=== PATIENT | female | born 1975 | race Caucasian/White ===

== ENCOUNTER → 2017-01-23 | Outpatient (CLI) | payer BC ==
--- NOTE | 2017-01-24 07:15 | MM ---
Reason for exam: screening (asymptomatic). Baseline mammogram. History: Family history of breast cancer in maternal grandmother at age 40. Physical Findings: Nurse did not find any significant physical abnormalities on exam. MG Screening Mammo w CAD Bilateral CC and MLO view(s) were taken. The breast tissue is heterogeneously dense. This may lower the sensitivity of mammography. There is no discrete abnormality. These results were verbally communicated with the patient and result sheet given to the patient on 01/23/17. ASSESSMENT: Negative, BI-RAD 1 RECOMMENDATION: Routine screening mammogram of both breasts in 1 year.
--- NOTE | 2017-01-24 16:55 | US ---
EXAMINATION TYPE: US transvaginal DATE OF EXAM: 01/23/2017 3:41 PM COMPARISON: NONE CLINICAL HISTORY: Irregular N92.6 Menses,. dub, general pelvic pain TECHNIQUE: Transvaginal (TV) EXAM MEASUREMENTS: Uterus: 7.4 x 4.3 x 5.2 cm Endometrial Stripe: 0.7 cm Right Ovary: 2.7 x 1.6 x 3.0 cm Left Ovary: 2.7 x 2.0 x 2.2 cm Order for TA pelvis, unable to visualize retroverted uterus or ovaries TA; TV done instead 1. Uterus: Retroverted wnl 2. Endometrium: somewhat heterogeneous, not thickened 3. Right Ovary: wnl 4. Left Ovary: seen with a 2.2cm complex cystic mass, shows no vascularity ?resolving hemorrhagic cy st v other; rec short term follow up 5. Bilateral Adnexa: wnl 6. Posterior cul-de-sac: small amount of free fluid IMPRESSION: 2.2 CM COMPLEX CYSTIC MASS INVOLVING THE LEFT OVARY.
== END | disposition home or self-care (01) ==
LOC: RADUSWWP 14:55
PROVIDERS: ATTEND Obstetrics & Gynecology
DX: Z12.31 Encounter for screening mammogram for malignant neoplasm of breast (principal); N83.292 Other ovarian cyst, left side; N92.4 Excessive bleeding in the premenopausal period; Z80.3 Family history of malignant neoplasm of breast
CPT/HCPCS: 76830; G0202

== ENCOUNTER → 2017-03-06 | Outpatient (CLI) | payer BC ==
[2017-03-06 08:23] LABS: Basophils # (A) 0.1 k/uL (0-0.2); Basophils % (A) 1 %; CHCM 33.9; Eosinophils # (A) 0.1 k/uL (0-0.7); Eosinophils % (A) 2 %; HCT 43.3 % (34.0-46.0); HDW 2.42; HGB 14.3 gm/dL (11.4-16.0); Luc # (Auto) 0.15; Luc % (Auto) 3; Lymphocytes # (A) 1.7 k/uL (1.0-4.8); Lymphocytes % (A) 29 %; MCH 31.2 pg (25.0-35.0); MCHC 32.9 g/dL (31.0-37.0); MCV 94.8 fL (80.0-100.0); Mean Platelet Volume 6.7; Monocytes # (A) 0.3 k/uL (0-1.0); Monocytes % (A) 6 %; Neutrophils # (A) 3.5 k/uL (1.3-7.7); Neutrophils % (A) 60 %; RBC 4.57 m/uL (3.80-5.40); RDW 12.6 % (11.5-15.5); WBC 5.9 k/uL (3.8-10.6); WBC (Perox) 6.01
== END | disposition home or self-care (01) ==
LOC: LABPAT 07:46
PROVIDERS: ATTEND Obstetrics & Gynecology
DX: Z01.818 Encounter for other preprocedural examination (principal)
CPT/HCPCS: 85025

== ENCOUNTER 2017-03-10 06:09 | Day surgery (SDC) | payer BC ==
[2017-03-09 08:29] VITALS: BMI 29.1
--- NOTE | 2017-03-09 19:56 | P.HPOB ---
History of Present Illness H&P Date: 03/09/17 Chief Complaint: NOVA 2, Dysmenorrhea, Menorrhagia This is a 41 y.o. female, 2, para 2, who presents for loop electrocautery excision procedure with colposcopy and dilatation and curettage with hysteroscopy and Novasure endometrial ablation for NOVA-2 and menorrhagia with dysmenorrhea. She had a recent colposcopy due to ASCUS cannot rule out HGSIL with positive high risk HPV. Results showed NOVA 1 and 2. She also complains of menses occuring every 21 days and lasting 4-5 days, but very heavy with significant cramping. She occasionally has a period come earlier. Pelvic ultrasound showed uterus measuring 7.4 x 4.3 x 5.2 cm and lining thickness of 7 mm. She did have a complex cyst measuring 2.2 cm on the left ovary. She would like definitive surgical treatment to control her heavy, painful menses. Her fiance has had a vasectomy. OB Hx: . History of 2 vaginal deliveries. 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 Social history: Engaged. Works for [employer]. Review of Systems Constitutional: Reports fatigue Respiratory: Denies cough Gastrointestinal: Reports heartburn, Denies abdominal pain, Denies diarrhea, Denies nausea, Denies vomiting Genitourinary: Reports dysmenorrhea, Reports pelvic pain Menstruation: Reports menses variable, Reports period heavy Musculoskeletal: Reports low back pain, Reports neck pain Integumentary: Denies pruritus, Denies rash Neurological: Reports headaches Psychiatric: Reports anxiety, Reports change in libido Endocrine: Reports flushing Past Medical History Past Medical History: Asthma, GERD/Reflux Additional Past Medical History / Comment(s): FREQUENT PAINFUL PERIODS; Degenerative disc disease History of Any Multi-Drug Resistant Organisms: None Reported Past Surgical History: Back Surgery, Orthopedic Surgery Additional Past Surgical History / Comment(s): left and right foot surgery, L5- S1 laminectomy 2005, Past Anesthesia/Blood Transfusion Reactions: Postoperative Nausea & Vomiting ( PONV) Past Psychological History: Anxiety Smoking Status: Former smoker Past Alcohol Use History: Occasional Additional Past Alcohol Use History / Comment(s): QUIT SMOKING 12/2016, SMOKED FROM AGE 12, 1 TO 1 AND 1/2 PPD Past Drug Use History: None Reported - Past Family History Mother Family Medical History: No Reported History Medications and Allergies Home Medications Medication Instructions Recorded Confirmed Type Budesonide/Formoterol Fumarate 1 puff PO BID 11/17/14 03/09/17 History [Symbicort 80-4.5 Mcg Inhaler] Naltrexone HCl/Bupropion HCl 2 tab PO BID 03/09/17 03/09/17 History [Contrave ER 8-90 mg Tablet] Xanax . 1 tab PO DAILY PRN 03/09/17 History Allergies Allergy/AdvReac Type Severity Reaction Status Date / Time ciprofloxacin [From Cipro] Allergy Unknown Verified 03/09/17 08:24 Latex, Natural Rubber Allergy Rash/Hives Verified 12/05/14 18:16 Exam Osteopathic Statement: *. No significant issues noted on an osteopathic structural exam other than those noted in the History and Physical/Consult. - Vital Signs Vital signs: Intake and Output 03/08/17 03/09/17 03/09/17 22:59 06:59 14:59 Other: Weight 79.379 kg Patient Weight 03/10/17 06:59 Weight 79.379 kg HEENT: within normal limits Heart: regular rate and rhythm Lungs: clear to auscultation bilaterally Abdomen: soft, non-tender Pelvic exam: uterus anteverted, non-tender with no adnexal masses or tenderness Extremities: neg. Saji's Assessment and Plan (1) NOVA II (cervical intraepithelial neoplasia II) Status: Acute (2) Menorrhagia with regular cycle Status: Acute (3) Dysmenorrhea Status: Acute Plan: Plan is to proceed with Loop electrocautery excision proceture/Colposcopy with dilatation and curettage with hysteroscopy and Novasure endometrial ablation. I have discussed the risks, benefits, and alternative therapies for the above- mentioned procedure and for both sedation/anesthesia as well as necessary blood products administration, if indicated, as they pertain to this patient. The patient has indicated her understanding and acceptance of the risks and procedures discussed.
[~2017-03-10 06:09] MED LIST: DEXAMETHASONE SOD PHOSPHATE 10 MG/ML 1 ML VIAL IV ONE; HYDROmorphone 1 MG/ML 1 ML SYRINGE IVP PRN; LACTATED RINGERS 1,000 ML IV SCH; MIDAZOLAM 2 MG/2 ML VIAL IV PRN; ONDANSETRON 4 MG/2 ML VIAL IVP ONE; Pre Op ABX Message 1 EACH MISC MISCELLANE ONE; SCOPOLAMINE 1.5MG/72HR PATCH TRANSDERM ONE
[2017-03-10 06:44] VITALS: RESP 16
[2017-03-10] MEDS ORDERED: LIDOCAINE 1% 20 ML VIAL (10MG/ML) FOR IV START INTRADERMA ONE (06:44)
[2017-03-10] MEDS ORDERED: KETOROLAC 30 MG/ML 1 ML VIAL ONE (07:26)
[2017-03-10] MEDS ORDERED: MIDAZOLAM 2 MG/2 ML VIAL ONE (07:26)
[2017-03-10] MEDS ORDERED: LIDOCAINE 1% INJ 10MG/ML (20 ML MDV) ONE (07:26)
[2017-03-10] MEDS ORDERED: PROPOFOL 10 MG/ML 20 ML VIAL IV ONE (07:26)
[2017-03-10] MEDS ORDERED: SUCCINYLCHOLINE CHLORIDE VIAL 200 MG/10 ML VIAL IV ONE (07:26)
[2017-03-10] MEDS ORDERED: fentaNYL (PF) 50 MCG/ML 2 ML AMP ONE (07:26)
[2017-03-10] MEDS ORDERED: FERRIC SUBSULFATE (MONSELS) JAR TOPICAL ONE (07:46)
[2017-03-10] MEDS ORDERED: LIDOCAINE 1%-EPI 1:100,000 20 ML VIAL SQ ONE (07:47)
[2017-03-10] MEDS ORDERED: ACETIC ACID 15 DROPS/ML DROPS MISCELLANE ONE (07:48)
[2017-03-10] MEDS ORDERED: BUPIVACAINE (PF) 0.5% 30 ML VIAL SQ ONE (07:48)
[2017-03-10] MEDS ORDERED: IODINE/POTASS IOD (LUGOLS) BTL TOPICAL ONE (07:48)
--- NOTE | 2017-03-10 08:08 | P.OP ---
Date of Procedure: 03/10/17 Preoperative Diagnosis: 1. NOVA 2. 2. Menorrhagia. 3. Dysmenorrhea. Postoperative Diagnosis: Same Procedure(s) Performed: 1. Colposcopy with loop electrocautery excision procedure. 2. Dilation and curettage with hysteroscopy and NovaSure endometrial ablation. Anesthesia: GETA Surgeon: Liat Lancaster Estimated Blood Loss (ml): 5 Pathology: other (Ectocervix with stitch on 12 o'clock position, separate piece is 3:00; endometrial curettings) Condition: stable Disposition: same day Indications for Procedure: This is a 41 y.o. female, 2, para 2, who presents for loop electrocautery excision procedure with colposcopy and dilatation and curettage with hysteroscopy and Novasure endometrial ablation for NOVA-2 and menorrhagia with dysmenorrhea. She had a recent colposcopy due to ASCUS cannot rule out HGSIL with positive high risk HPV. Results showed NOVA 1 and 2. She also complains of menses occuring every 21 days and lasting 4-5 days, but very heavy with significant cramping. She occasionally has a period come earlier. Pelvic ultrasound showed uterus measuring 7.4 x 4.3 x 5.2 cm and lining thickness of 7 mm. She did have a complex cyst measuring 2.2 cm on the left ovary. She would like definitive surgical treatment to control her heavy, painful menses. Her fiance has had a vasectomy. Operative Findings: Upon colposcopy, acetowhite area was noted at 4 o'clock position. Lugol white area was also noted in the same area and along the 3:00 border. No mosaicism was noted. Upon hysteroscopy, a dyssynchronous endometrial pattern was noted with a questionable small polyp noted. A moderate amount of endometrial curettings were obtained. Description of Procedure: The patient was taken the operating room where she is placed in the dorsal lithotomy position. She is prepped and draped in the normal sterile fashion. Bladder is drained with a catheter and then removed. A coated bivalve speculum was placed in the patient's vagina. Next colposcopy was performed using a blue light. The cervix was swabbed with acetic acid. The above-noted findings were made. Next the cervix was swabbed with Lugol solution. The above-noted findings were made. Next the cervix was circumferentially injected with a 50- 50 mixture of half percent Marcaine and 1 percent lidocaine with epinephrine. Approximately 7 mL were used. Next a large cutting loop was used with 35 W of cutting power to swipe from left to right. An additional portion from the 3:00 border was also removed with a large loop. The 12 o'clock position on the main specimen was labeled with a suture. Next the bed left behind was cauterized with ball-tipped cautery. Excellent hemostasis was noted. The coated speculum was removed. Next attention was turned to the second procedure. Pelvic exam is performed under anesthesia. Uterus is found to be retroverted with no adnexal masses. She is placed in slight Trendelenburg position. A right angle retractor is used to visualize the cervix. The anterior lip of the cervix is grasped with a single-tooth tenaculum. Cervix is sounded to 3 cm. Uterus is sounded to 9 cm. Cervix is gently dilated with Sutherland dilators until a hysteroscope could be passed. Hysteroscopy is performed using normal saline. The above noted findings are noted. Next a polyp forceps is introduced. A minimal amount of tissue was obtained. Next medium-sized size sharp curette was placed. A moderate amount of endometrial curettings were obtained. Next NovaSure array was inserted into the endometrial cavity. Length was set at 6 cm and width was determined to be 3.5 cm. Next cavity assessment was completed and passed on the first try. Next NovaSure array was fired at 116 W for 91 seconds. Next the array was removed, inspected and then discarded. Next the hysteroscope was reinserted. Uniform charring was noted. Pictures were taken. Hysteroscope was removed. Single-tooth tenaculum was removed from the anterior lip of the cervix. Minimal bleeding was noted. Monsel solution is now applied to the cervix. All other instruments removed from the vagina. Sponge counts were correct. Patient is taken to recovery room in stable condition.
[2017-03-10 08:23] VITALS: TEMP 97.2
[2017-03-10] MEDS ORDERED: LACTATED RINGERS 1,000 ML IV ONE (08:41)
[2017-03-10] MEDS ORDERED: ACETAMINOPHEN TAB 325 MG TAB PO ONE (09:29)
[2017-03-10 09:51] VITALS: BP 129/72; PULSE 74
== END 2017-03-10 10:03 | disposition home or self-care (01) ==
LOC: OR 06:09
PROVIDERS: ATTEND Obstetrics & Gynecology
DX: N87.1 Moderate cervical dysplasia (principal); N94.6 Dysmenorrhea, unspecified; N92.0 Excessive and frequent menstruation with regular cycle; N83.292 Other ovarian cyst, left side; F41.9 Anxiety disorder, unspecified; Z79.51 Long term (current) use of inhaled steroids; Z79.899 Other long term (current) drug therapy; Z88.1 Allergy status to other antibiotic agents; Z91.040 Latex allergy status; Z87.891 Personal history of nicotine dependence
CPT/HCPCS: 81025; 88305; 88307; 57460; 58563; J2250; J0330; J1100; J2405; J2001; J3010; J1885; J2704

== ENCOUNTER → 2018-05-23 | Outpatient (CLI) | payer BC ==
--- NOTE | 2018-05-23 11:43 | XR ---
EXAMINATION TYPE: XR chest 2V DATE OF EXAM: 05/23/2018 COMPARISON: 12/05/2014 INDICATION: Chest pain TECHNIQUE: Frontal and lateral views of the chest are obtained. FINDINGS: The heart size is normal. The pulmonary vasculature is normal. The lungs are clear. IMPRESSION: 1. No acute pulmonary process.
--- NOTE | 2018-05-23 13:06 | EST ---
EXERCISE STRESS DATE OF SERVICE: 05/23/2018 AGE: 42 SEX: Female HT: 5'5" WT: 200 PROTOCOL: Onofre STAGE: II DURATION OF EXERCISE: 8-1/2 minutes HEART RATE REST: 63 BLOOD PRESSURE REST: 137/93 MAXIMUM HEART RATE ACHIEVED: 153 MAXIMUM BLOOD PRESSURE: 170/74 85% MPHR: 150 100% MPHR: 176 METS: 10 INDICATIONS: Chest pain. CLINICAL INFORMATION: Baseline EKG shows sinus rhythm, normal axis, normal intervals. Patient exercised on Onofre protocol for a total of 8-1/2 minutes achieving 10 METs, 85% of predicted maximal heart rate without chest pain or diagnostic ST-segment depression. CONCLUSIONS: 1. Good exercise tolerance. 2. Negative stress test by EKG criteria. MMODL / IJN: [id number] /
== END | disposition home or self-care (01) ==
LOC: RADNMMAIN 11:12
PROVIDERS: ATTEND Internal Medicine
DX: R07.9 Chest pain, unspecified (principal); J06.9 Acute upper respiratory infection, unspecified
CPT/HCPCS: 71046; 93017

== ENCOUNTER → 2018-06-12 | Outpatient (CLI) | payer BC ==
--- NOTE | 2018-06-19 09:44 | MM ---
Reason for exam: screening (asymptomatic). Last mammogram was performed 1 year and 5 months ago. History: Family history of breast cancer in maternal grandmother at age 40. Physical Findings: A clinical breast exam by your physician is recommended on an annual basis and results should be correlated with mammographic findings. MG Screening Mammo w CAD Bilateral CC and MLO view(s) were taken. Prior study comparison: January 23, 2017, bilateral MG screening mammo w CAD. The breast tissue is extremely dense which could obscure a lesion on mammography. No suspicious abnormality. No significant changes when compared with prior studies. ASSESSMENT: Negative, BI-RAD 1 RECOMMENDATION: Routine screening mammogram of both breasts in 1 year.
== END | disposition home or self-care (01) ==
LOC: RADMAMWWP 14:31
PROVIDERS: ATTEND Internal Medicine
DX: Z12.31 Encounter for screening mammogram for malignant neoplasm of breast (principal)
CPT/HCPCS: 77067

== ENCOUNTER 2019-03-17 11:43 | Emergency (ER) | payer BC ==
[2019-03-17 11:48] VITALS: BP 143/82; PULSE 81; RESP 18; TEMP 98.8
[2019-03-17] MEDS ORDERED: ACETAMINOPHEN TAB 500 MG TAB PO STA (12:08)
--- NOTE | 2019-03-17 12:10 | ED ---
General Adult HPI - General Chief complaint: Extremity Injury, Upper Stated complaint: Collarbone injury Time Seen by Provider: 03/17/19 11:50 Source: patient Mode of arrival: ambulatory Limitations: no limitations - History of Present Illness Initial comments: Dictation was produced using Sensoraide dictation software. please excuse any g rammatical, word or spelling errors. Chief Complaint: 43-year-old male with chief complaint of right shoulder pain. History of Present Illness: Patient is a 43-year-old female with past medical history of asthma GERD, musculoskeletal disorder and herniated disks in the cervical spine presents with right collarbone pain. Patient states she was at her chiropractor yesterday when she was manipulated. Patient states she felt no symptoms immediately after the chiropractor. She will Stay with significant tenderness especially to the right clavicle. She localizes the pain to over the phone at approximately the medial and lateral third of the clavicle. Patient states it's worse with movement. Denies any neuro deficits. Patient denies any neck pain. Denies any dizziness. She reports the chiropractor she had full manipulation of the upper body including the upper back, cervical spine and upper extremities. The ROS documented in this emergency department record has been reviewed and confirmed by me. Those systems with pertinent positive or negative responses have been documented in the HPI. All other systems are other negative and/or noncontributory. PHYSICAL EXAM: General Impression: Alert and oriented x3, not in acute distress HEENT: Normocephalic atraumatic, extra-ocular movements intact, pupils equal and reactive to light bilaterally, mucous membranes moist. Cardiovascular: Heart regular rate and rhythm, S1&S2 audible, no murmurs, rubs or gallops Chest: Lungs clear to auscultation bilaterally, no rhonchi, no wheeze, no rales Abdomen: Bowel sounds present, abdomen soft, non-tender, non-distended, no organomegaly Musculoskeletal: Pulses present and equal in all extremities, no peripheral edema, tenderness to palpation over the medial and lateral third of clavicle directly over the bone Motor: no focal deficits noted Neurological: CN II-XII grossly intact, no focal motor or sensory deficits noted, no gait ataxia Skin: Intact with no visualized rashes Psych: Normal affect and mood ED course: 43-year-old female presents with collarbone pain. Vital signs upon arrival are within acceptable limits. Physical examination is benign. X-rays unremarkable. Patient given a sling patient given referral to orthopedic surgery. Patient clear for discharge. - Related Data Home Medications Medication Instructions Recorded Confirmed ALPRAZolam [Xanax] 0.25 mg PO HS 03/17/19 03/17/19 Etodolac [Lodine] 400 mg PO HS 03/17/19 03/17/19 Sertraline [Zoloft] 100 mg PO HS 03/17/19 03/17/19 Previous Rx's Medication Instructions Recorded HYDROcodone/APAP 5-325MG [Sherman 1 tab PO Q6HR PRN 3 Days #12 tab 03/17/19 5-325] Allergies Allergy/AdvReac Type Severity Reaction Status Date / Time ciprofloxacin [From Cipro] Allergy Unknown Verified 03/17/19 11:57 Latex, Natural Rubber Allergy Rash/Hives Verified 03/17/19 11:57 Review of Systems ROS Statement: Those systems with pertinent positive or pertinent negative responses have been documented in the HPI. ROS Other: All systems not noted in ROS Statement are negative. Past Medical History Past Medical History: Asthma, GERD/Reflux, Musculoskeletal Disorder Additional Past Medical History / Comment(s): Herniated disc in neck History of Any Multi-Drug Resistant Organisms: None Reported Past Surgical History: Orthopedic Surgery Additional Past Surgical History / Comment(s): left and right foot surgery, L5- S1 laminectomy 2005, Past Anesthesia/Blood Transfusion Reactions: Postoperative Nausea & Vomiting (PONV) Past Psychological History: No Psychological Hx Reported Smoking Status: Former smoker Past Alcohol Use History: Rare Past Drug Use History: None Reported General Exam Limitations: no limitations Course Vital Signs 03/17/19 11:46 Temperature 98.8 F Pulse Rate 81 Respiratory 18 Rate Blood Pressure 143/82 O2 Sat by Pulse 96 Oximetry Disposition Clinical Impression: Shoulder pain Disposition: HOME SELF-CARE Condition: Good Instructions (If sedation given, give patient instructions): Shoulder Pain (ED) Prescriptions: HYDROcodone/APAP 5-325MG [Sherman 5-325] 1 tab PO Q6HR PRN 3 Days #12 tab PRN Reason: Severe Pain Is patient prescribed a controlled substance at d/c from ED?: Yes If prescribed controlled substance>3 days was MAPS reviewed?: Prescribed <3 Days Referrals: Elie Abebe MD [STAFF PHYSICIAN] - 1-2 days Time of Disposition: 15:21
--- NOTE | 2019-03-17 12:25 | XR ---
EXAMINATION TYPE: XR clavicle RT , 2 VIEWS DATE OF EXAM ORDERED: 03/17/2019 HISTORY: Pain. COMPARISON: None. FINDINGS: No fracture or dislocation is seen. The coracoclavicular distance is normal. IMPRESSION: NO ACUTE OSSEOUS LESION.
--- NOTE | 2019-03-17 14:17 | XR ---
EXAMINATION TYPE: XR shoulder complete RT DATE OF EXAM: 03/17/2019 CLINICAL HISTORY: EXAMINATION TYPE: XR shoulder complete RT DATE OF EXAM: 03/17/2019 CLINICAL HISTORY: Right shoulder pain, injury TECHNIQUE: Three views of the right shoulder are obtained. COMPARISON: None. FINDINGS: There is no acute fracture/dislocation evident in the right shoulder. The acromioclavicul ar and glenohumeral joint spaces appear within normal limits. The visualized ribs are intact and unr emarkable. IMPRESSION: No acute fracture or dislocation of the right shoulder.
== END 2019-03-17 15:25 | disposition home or self-care (01) ==
LOC: EC 11:43
DX: M25.511 Pain in right shoulder (principal); Z87.891 Personal history of nicotine dependence; Z79.1 Long term (current) use of non-steroidal anti-inflammatories (NSAID); Z79.899 Other long term (current) drug therapy; Z88.1 Allergy status to other antibiotic agents; Z91.040 Latex allergy status
CPT/HCPCS: 99283

== ENCOUNTER → 2019-05-06 | Day surgery (SDC) | payer BC ==
[2019-04-26 15:57] VITALS: BMI 34.2
[~2019-05-06] MED LIST changes: +ACETAMINOPHEN TAB 500 MG TAB PO PRN; +ALPRAZolam 0.25 MG TAB PO PRN; +BACITRACIN 50,000 UNIT, POLYMYXIN B 500,000 UNIT in SODIUM CHLORIDE 0.9% IRRIGATIO 1,00... IRRIGATION ONE; +BENZOCAINE/MENTHOL LOZENG 1 EACH LOZENGE MUCOUS MEM PRN; +GELATIN SPONGE,ABSORB (LARGE) 1 EACH SPONGE MISCELLANE ONE; +HYDROcodone/APAP 5-325MG 1 EACH TAB PO ONE; +HYDROcodone/APAP 5-325MG 1 EACH TAB PO PRN; +HYDROmorphone 0.5 MG/0.5 ML SYRINGE IVP PRN; -HYDROmorphone 1 MG/ML 1 ML SYRINGE IVP PRN; +KETAMINE 10 MG/ML 20 ML VIAL ONE; +LACTATED RINGERS 1,000 ML IV ONE; +LIDOCAINE 1% 20 ML VIAL (10MG/ML) FOR IV START INTRADERMA PRN; +LIDOCAINE 1% INJ 10MG/ML (20 ML MDV) ONE; +LIDOCAINE 1%-EPI 1:100,000 20 ML VIAL SQ ONE; +MIDAZOLAM 2 MG/2 ML VIAL ONE; +NON-FORMULARY DRUG (Omeprazole Magnesium [Prilosec Otc] 20 MG) PO SCH; +ONDANSETRON 4 MG/2 ML VIAL IVP PRN; +PROPOFOL 10 MG/ML 20 ML VIAL IV ONE; -Pre Op ABX Message 1 EACH MISC MISCELLANE ONE; -SCOPOLAMINE 1.5MG/72HR PATCH TRANSDERM ONE; +SENNOSIDES-DOCUSATE SODIUM 1 EACH TAB PO SCH; +SERTRALINE 100 MG TAB PO SCH; +SODIUM CHLORIDE 0.9% 1,000 ML IV SCH; +SUCCINYLCHOLINE CHLORIDE 100 MG/5 ML SYR IV ONE; +THROMBIN (BOVINE) 5,000 UNIT VIAL TOPICAL ONE; +ceFAZolin IN SWFI 2 GM/20 ML SYRINGE IVP ONE; +ceFAZolin IN SWFI 2 GM/20 ML SYRINGE IVP SCH; +ePHEDrine SULFATE/0.9% NACL/PF 50 MG/5 ML SYRINGE IV ONE; +fentaNYL (PF) 50 MCG/ML 2 ML AMP ONE
--- NOTE | 2019-05-06 14:42 | P.OP ---
Date of Procedure: 05/06/19 Preoperative Diagnosis: Herniated nuclear pulposus C5 6, cervical stenosis C5 6, right option radiculopathy, right upper extremity weakness Postoperative Diagnosis: Herniated nuclear pulposus C5 6, cervical stenosis C5 6, right option radiculopathy, right upper extremity weakness Procedure(s) Performed: Anterior cervical discectomy for decompression and fusion C5 6, placement of interbody allograft bone graft C5 6, application of anterior cervical plate C5 6 Anesthesia: GETA Pathology: none sent Condition: stable Disposition: PACU Description of Procedure: BRIEF OPERATIVE NOTE Preoperative Diagnosis:Herniated nuclear pulposus C5 6, cervical stenosis C5 6, right option radiculopathy, right upper extremity weakness Postoperative Diagnosis:Herniated nuclear pulposus C5 6, cervical stenosis C5 6, right option radiculopathy, right upper extremity weakness Procedure: Anterior cervical decompression with discectomy and fusion C5 6 Placement of interbody graft C5 6 Application of anterior cervical plate C5 6 Surgeon: Dr. Lo Supervisor Drying: Dawson Pinto is present throughout the entire the case persistence during positioning, dissection, exposure, visualization, and all crucial elements of the case as well as closure. Anesthesia: General anesthesia Estimated blood loss: Approximately 20 mL Complications: None apparent Components implanted: K2M Hudson anterior cervical plate system with screws and one Vikos interbody allograft bone graft Disposition: To recovery room in good stable condition. OPERATIVE INDICATIONS The patient has had long-standing issues in their neck and upper extremities. She does not have a large disc herniation at C5 6 with extruded fragment to the right side which correlated well with her neck and upper extremity symptoms. She is having considerable debility due to her pain and is having right upper extremity radicular symptoms pain and some weakness which correlated well with her imaging findings. The patient has been through conservative treatment. She is not having any lasting benefit despite aggressive conservative care . We discussed various treatment options including surgery, and the patient wishes to proceed with surgery We discussed the risk, patient's alternatives and benefits of surgery including but not limited to, risk of bleeding risk of infection, risk of need for further surgery, risk of decreased, loss of motion, muscle function, malunion nonunion, hardware failure, nerve damage, paralysis, heart attack, and . OPERATIVE SUMMARY After discussing all the risks, patient alternatives and benefits at length, the patient elected to proceed with surgical intervention, signed informed consent, and presented for their procedure. The patient was seen and examined in the preoperative holding area and the surgical site was marked. The patient was given antibiotics and brought to the operating room. The patient was positioned on the operating room table in a supine position being careful to pad any bony prominences and pressure points. The patient was sedated and intubated by anesthesia in standard fashion. Once the airway and C- spine were stabilized the patient's arms were padded and tucked at her side, with her shoulders gently taped. The head was placed in a donut pad with the neck in good neutral alignment and position. We were careful to maintain the patient's cervical spine and good neutral alignment and position throughout. The patient was prepped and draped in a normal standard fashion. An appropriate timeout and keystone protocol performed. We were able to proceed with the surgery. The local wound area was infiltrated with local anesthetic. An incision was made transversely approximately 2-1/2 cm over the appropriate levels of C5 6. Dissection was taken down subcutaneously to the level of the platysma which was split in line with its fibers. Dissection was taken with a carotid approach, with the trachea and esophagus medial and the carotid sheath laterally. We dissected down to the anterior surface of the vertebral bodies. Intraoperative x-ray was taken which showed a marker at the appropriate level of C5 6. With the appropriate level positively confirmed, we were able to proceed with discectomy at the appropriate levels. All of the operative levels were e xposed appropriately. The patient had all their twitches back, and there was no evidence of recurrent laryngeal issue. The wound was copiously irrigated and suctioned dry as had been done periodically throughout the case. At the appropriate level/levels, at C5 6 I established an annulotomy with an 11 blade scalpel. A discectomy was performed with a combination of pituitary rongeurs, curettes, a high-speed bur, and Kerrison rongeurs. The posterior longitudinal ligament was taken down as were any posterior osteophytes. This gave good central and bilateral foraminal decompression. There is no evidence of any dural tear or leak. The endplates were prepared with a high-speed bur. With the endplates in good parallel position, I was able to size for the appropriate size interbody graft. The wound was irrigated and suctioned dry the graft was prepared and malleted into position. It had good alignment and position with the anterior surface flush with the anterior surface of the vertebral bodies of C5 and C6 With the grafts intact, I was able to measure and contour and appropriate sized plate. The plate was positioned at the midline over the appropriate levels of C5 6. Screw holes were established with a hand drill and drill guide. Screws were placed in good alignment and position with excellent bony purchase. They were seated under the locking device. The construct was checked and found to be stable. Intraoperative x-ray was taken which showed good alignment and position of the implants at the appropriate levels. There was no evidence of any dural tear or leak. Good hemostasis was maintained. The wound was copiously irrigated and suctioned dry as had been done periodically throughout the case. The platysma was closed with absorbable suture. The subcutaneous tissue was closed. The subcuticular tissue was closed with absorbable suture. The wound was cleaned and dried and dressed appropriately. A soft cervical collar was placed appropriately. The patient was woken up by anesthesia, extubated, transferred back gently to their hospital bed and brought to the recovery room in good stable condition. The patient will be admitted to the hospital for appropriate postoperative care, medical management and monitoring. We will continue to follow them closely about the postoperative course.
[2019-05-06 15:04] VITALS: TEMP 97.3
[2019-05-06 15:07] VITALS: RESP 18
[2019-05-06] MEDS: HYDROmorphone 1 MG/ML 1 ML SYRINGE IVP ONE ×2 (15:12→15:24)
--- NOTE | 2019-05-06 16:14 | XR ---
EXAMINATION TYPE: XR cervical spine 1V DATE OF EXAM: 05/06/2019 at 1342 hours COMPARISON: 04/20/2011 HISTORY: 43-year-old female needle placement TECHNIQUE: Single crosstable lateral view FINDINGS: Intraoperative image with a patient intubated. An anterior approach metallic needle is at the C5-C6 l evel. IMPRESSION: Needle at the C5-C6 disc interspace.
--- NOTE | 2019-05-06 16:21 | XR ---
EXAMINATION TYPE: XR cervical spine 1V DATE OF EXAM: 05/06/2019 at 1411 hours COMPARISON: NONE HISTORY: 43-year-old female screw placement TECHNIQUE: Single portable crosstable lateral view in the OR FINDINGS: Patient is intubated. Interval placement of C5-C6 ACDF hardware. IMPRESSION: Interval placement of C5-C6 ACDF hardware.
[2019-05-06 17:36] VITALS: BP 120/65; PULSE 105
== END | disposition home or self-care (01) ==
LOC: OR 11:58
PROVIDERS: ATTEND Orthopaedic Surgery Orthopaedic Surgery of the Spine
DX: M48.02 Spinal stenosis, cervical region (principal); M50.122 Cervical disc disorder at C5-C6 level with radiculopathy; E78.5 Hyperlipidemia, unspecified; J45.909 Unspecified asthma, uncomplicated; R51 Headache; E66.9 Obesity, unspecified; Z79.1 Long term (current) use of non-steroidal anti-inflammatories (NSAID); Z79.899 Other long term (current) drug therapy; Z87.891 Personal history of nicotine dependence; Z82.49 Family history of ischemic heart disease and other diseases of the circulatory system; Z91.040 Latex allergy status; Z68.34 Body mass index [BMI] 34.0-34.9, adult
CPT/HCPCS: 81025; 72020; 22551; 22845; 20931; C1713; C1762; J2250; J1100; J2405; J2001; J3010; J1170; J0330; J2704; J0690; 86850; 86900; 86901

== ENCOUNTER → 2019-05-28 | Outpatient (CLI) | payer BC ==
--- NOTE | 2019-05-28 10:03 | CT ---
EXAMINATION TYPE: CT chest w con DATE OF EXAM: 05/28/2019 COMPARISON: Chest x-ray 04/27/2019 HISTORY: Pulmonary Nodule CT DLP: 364.7 mGycm Automated exposure control for dose reduction was used. CONTRAST: CT scan of the chest is performed with IV Contrast, patient injected with 100 mL of Isovue 300. FINDINGS: LUNGS: The lungs are grossly clear, there is no concerning parenchymal mass or nodule identified. T here is no pleural effusion or pneumothorax seen. The tracheobronchial tree is patent. MEDIASTINUM: There are no greater than 1 cm hilar or mediastinal lymph nodes. No pericardial effusi on is seen. AORTA: No additional significant abnormality is seen. OTHER: Low dense focus in the anterior right lobe of the liver measures approximately 19 mm and like ly represents cyst, liver shows low attenuation possibly due to fatty infiltration. IMPRESSION: No evident lung nodule.
== END | disposition home or self-care (01) ==
LOC: RADCTMAIN 06:53
PROVIDERS: ATTEND Internal Medicine
DX: R91.1 Solitary pulmonary nodule (principal)
CPT/HCPCS: 71260

== ENCOUNTER → 2019-10-09 | Outpatient (CLI) | payer BC ==
--- NOTE | 2019-10-09 22:04 | MR ---
EXAMINATION TYPE: MR brain wo con DATE OF EXAM: 10/09/2019 COMPARISON: NONE HISTORY: Confusion, forgetfulness TECHNIQUE: T1-weighted sagittal, T2, FLAIR, and diffusion axial, and T2 coronal coronal views of the brain are submitted. FINDINGS: There is no evidence of acute ischemia. The ventricles, basal cisterns, and sulci overlying the conv exities are consistent with the patient's age. There is no mass effect. Craniocervical junction maintained. Sella turcica has a normal appearance. No cerebellopontine angle mass. Prominent CSF structure in the posterior fossa may represent a promin ent cisterna magna versus arachnoid cyst. Changes of chronic sinusitis noted. White matter: There are approximately 8 less than 5 mm areas of abnormal signal seen scattered throughout the white matter bilaterally. No callosal lesions No lesions perpendicular to ventricular system. IMPRESSION: 1. Prominent CSF structure posterior fossa most likely the basis of prominent cisterna magna versus a rachnoid cyst. 2. Mild nonspecific white matter changes can be seen with migraine headaches, hypertension, remote mi crovascular ischemia. Demyelinating process not excluded.
== END | disposition home or self-care (01) ==
LOC: RADMRIMAIN 20:27
PROVIDERS: ATTEND Internal Medicine
DX: R41.82 Altered mental status, unspecified (principal)
CPT/HCPCS: 70551

== ENCOUNTER → 2019-10-22 | Outpatient (CLI) | payer BC ==
--- NOTE | 2019-10-22 08:20 | US ---
EXAMINATION TYPE: US abdomen limited DATE OF EXAM: 10/22/2019 COMPARISON: Chest CT May 28, 2019 CLINICAL HISTORY: R10.11 RUQ abd Pain. RUQ pain. NPO. EXAM MEASUREMENTS: Liver Length: 14.7 cm Gallbladder Wall: 0.2 cm CBD: 0.4 cm Right Kidney: 9.8 x 4.2 x 4.1 cm Pancreas: Echogenic appearance Liver: Increased attenuation Gallbladder: wnl Evidence for sonographic Abebe's sign: neg CBD: wnl Right Kidney: wnl Evaluation for focal masses suboptimal due to the overlying heterogeneity. IMPRESSION: Visualized liver shows heterogeneous hyperechoic likely reflecting diffuse fatty infiltra tion. No acute findings are evident.
== END | disposition home or self-care (01) ==
LOC: RADUSWWP 07:37
PROVIDERS: ATTEND Internal Medicine
DX: K76.89 Other specified diseases of liver (principal)
CPT/HCPCS: 76705

== ENCOUNTER 2019-11-05 09:24 | Emergency (ER) | payer BC ==
[2019-11-05 10:02] VITALS: TEMP 97.9
--- NOTE | 2019-11-05 10:35 | ED ---
URI HPI - General Chief Complaint: Upper Respiratory Infection Stated Complaint: cough, SOB Time Seen by Provider: 11/05/19 10:17 Source: patient Mode of arrival: ambulatory Limitations: no limitations - History of Present Illness Initial Comments: Patient is a 43-year-old female presenting to emergency Department with complaints of a cough 2 day. Patient states she is also been having hot flashes and chills and is afraid she may have pneumonia again. She gets pneumonia approximately 1 to 2 times a year. She also feels shortness of breath at times. Patient denies nausea, vomiting, diarrhea. She does have a history of mild asthma. There are no other complaints today. She denies taking Tylenol Motrin stay. Upon arrival to the ER, her vital signs are stable. - Related Data Home Medications Medication Instructions Recorded Confirmed ALPRAZolam [Xanax] 0.25 mg PO BID PRN 03/17/19 05/06/19 Sertraline [Zoloft] 100 mg PO HS 03/17/19 05/06/19 Acetaminophen Tab [Tylenol Tab] 1,000 mg PO Q6H PRN 04/26/19 05/06/19 Omeprazole Magnesium [PriLOSEC OTC] 20 mg PO Q2D 04/26/19 05/06/19 Previous Rx's Medication Instructions Recorded HYDROcodone/APAP 5-325MG [[place] 5] 1 each PO Q4HR PRN #18 tab 05/06/19 Azithromycin [Zithromax Z-pack] 0 mg PO DIRECTED #1 pack 11/05/19 methylPREDNISolone [Medrol Dose 4 mg PO DIRECTED #1 pack 11/05/19 Pack] Allergies Allergy/AdvReac Type Severity Reaction Status Date / Time Latex, Natural Rubber Allergy Rash/Hives Verified 11/05/19 09:59 topiramate [From Topamax] AdvReac mood swings Verified 11/05/19 09:59 Review of Systems ROS Statement: Those systems with pertinent positive or pertinent negative responses have been documented in the HPI. ROS Other: All systems not noted in ROS Statement are negative. Past Medical History Past Medical History: Asthma, GERD/Reflux, Musculoskeletal Disorder Additional Past Medical History / Comment(s): Herniated disc in neck History of Any Multi-Drug Resistant Organisms: None Reported Past Surgical History: Back Surgery, Orthopedic Surgery, Uterine Ablation Additional Past Surgical History / Comment(s): left and right foot surgery, L5- S1 laminectomy 2006 Past Anesthesia/Blood Transfusion Reactions: Postoperative Nausea & Vomiting (PONV) Past Psychological History: Anxiety Smoking Status: Former smoker Past Alcohol Use History: None Reported Past Drug Use History: None Reported - Past Family History Mother Family Medical History: No Reported History General Exam - General Exam Comments Initial Comments: GENERAL: Well-appearing, well-nourished and in no acute distress. HEAD: Atraumatic, normocephalic. EYES: Pupils equal round and reactive to light, extraocular movements intact, sclera anicteric, conjunctiva are normal. ENT: TMs normal, nares patent, oropharynx clear without exudates. Moist mucous membranes. NECK: Normal range of motion, supple without lymphadenopathy or JVD. LUNGS: Breath sounds clear to auscultation bilaterally and equal. No wheezes rales or rhonchi. HEART: Regular rate and rhythm without murmurs, rubs or gallops. ABDOMEN: Soft, nontender, normoactive bowel sounds. No guarding, no rebound. No masses appreciated. : Deferred EXTREMITIES: Normal range of motion, no pitting or edema. No clubbing or cyanosis. NEUROLOGICAL: Normal speech, normal gait. PSYCH: Normal mood, normal affect. SKIN: Warm, Dry, normal turgor, no rashes or lesions noted. Limitations: no limitations Course Vital Signs 11/05/19 11/05/19 11/05/19 10:00 10:10 12:41 Temperature 97.9 F Pulse Rate 83 82 Respiratory 18 20 18 Rate Blood Pressure 127/82 122/78 O2 Sat by Pulse 97 98 Oximetry Medical Decision Making - Medical Decision Making Patient is a 43-year-old female presenting with cough 2 days. She has history of pneumonia. Vital signs are stable today. Influenza is negative. Chest x- ray shows no acute findings. I discussed these findings with the patient. Patient is highly concerned that she will develop congestion pneumonia. Patient will be given a prescription for steroids as well as a Z-Jose C however I discussed with patient to delay taking the z-pack for at least 3-5 days as her symptoms are likely viral. Patient agreed with this plan of care. She is stable for discharge at this time. Return parameters were discussed with the patient she verbalized understanding. - Lab Data Lab Results 01/07/20 Range/Units 11:45 Influenza Type A RNA Not Detected (Not Detectd) Influenza Type B (PCR) Not Detected (Not Detectd) Disposition Clinical Impression: Bronchitis Disposition: HOME SELF-CARE Condition: Stable Instructions (If sedation given, give patient instructions): Acute Bronchitis (ED) Additional Instructions: Please return to the Emergency Department if symptoms worsen or any other concerns. Take steroids as prescribed. If symptoms persist may start antibiotic. Follow up with PCP. Prescriptions: methylPREDNISolone [Medrol Dose Pack] 4 mg PO DIRECTED #1 pack Azithromycin [Zithromax Z-pack] 0 mg PO DIRECTED #1 pack Is patient prescribed a controlled substance at d/c from ED?: No Referrals: Devin Pike MD [Primary Care Provider] - 1-2 days
--- NOTE | 2019-11-05 11:34 | XR ---
EXAMINATION TYPE: XR chest 2V DATE OF EXAM: 11/05/2019 COMPARISON: 04/27/2019 HISTORY: Cough and fever TECHNIQUE: Frontal and lateral views of the chest are obtained. FINDINGS: There is no focal air space opacity, pleural effusion, or pneumothorax seen. The cardiac silhouette size is within normal limits. The osseous structures are intact. Cervical fusion device is seen IMPRESSION: No acute cardiopulmonary process.
[2019-11-05] MEDS ORDERED: IBUPROFEN 600 MG TAB PO STA (12:27)
[2019-11-05 12:43] VITALS: BP 122/78; PULSE 82; RESP 18
== END 2019-11-05 12:41 | disposition home or self-care (01) ==
LOC: EC 09:24
DX: J40 Bronchitis, not specified as acute or chronic (principal); F41.9 Anxiety disorder, unspecified; K21.9 Gastro-esophageal reflux disease without esophagitis; Z79.899 Other long term (current) drug therapy; Z91.040 Latex allergy status; Z91.048 Other nonmedicinal substance allergy status; Z88.8 Allergy status to other drugs, medicaments and biological substances; Z87.891 Personal history of nicotine dependence
CPT/HCPCS: 71046; 87502; 99285

== ENCOUNTER → 2020-04-15 | Outpatient (CLI) | payer BC ==
[2020-04-15 07:58] LABS: Basophils # (A) 0.1 k/uL (0-0.2); Basophils % (A) 1 %; Eosinophils # (A) 0.2 k/uL (0-0.7); Eosinophils % (A) 3 %; HCT 40.2 % (34.0-46.0); HGB 12.8 gm/dL (11.4-16.0); Lymphocytes # (A) 2.1 k/uL (1.0-4.8); Lymphocytes % (A) 37 %; MCH 30.4 pg (25.0-35.0); MCHC 31.9 g/dL (31.0-37.0); MCV 95.1 fL (80.0-100.0); Monocytes # (A) 0.3 k/uL (0-1.0); Monocytes % (A) 4 %; Neutrophils # (A) 3.2 k/uL (1.3-7.7); Neutrophils % (A) 54 %; Platelet Count 251 k/uL (150-450); RBC 4.23 m/uL (3.80-5.40); RDW 13.6 % (11.5-15.5); WBC 5.9 k/uL (3.8-10.6)
[2020-04-15 08:21] LABS: INR 0.9 (<1.2); Partial Thromboplastin Time 24.5 sec (22.0-30.0); Prothrombin Time 9.6 sec (9.0-12.0)
[2020-04-15 09:17] LABS: Erythrocyte Sedimentation Rate 10 mm/hr (0-20)
--- NOTE | 2020-04-16 10:46 | MM ---
Reason for exam: screening (asymptomatic). Last mammogram was performed 1 year and 10 months ago. History: Family history of breast cancer in maternal grandmother at age 40. Physical Findings: A clinical breast exam by your physician is recommended on an annual basis and results should be correlated with mammographic findings. MG 3D Screening Mammo W/Cad Bilateral CC and MLO view(s) were taken. Prior study comparison: June 12, 2018, bilateral MG screening mammo w CAD. January 23, 2017, bilateral MG screening mammo w CAD. The breast tissue is heterogeneously dense. This may lower the sensitivity of mammography. No significant changes when compared with prior studies. ASSESSMENT: Negative, BI-RAD 1 RECOMMENDATION: Routine screening mammogram of both breasts in 1 year.
== END | disposition home or self-care (01) ==
LOC: RADMAMWWP 07:04
PROVIDERS: ATTEND Internal Medicine
DX: Z12.31 Encounter for screening mammogram for malignant neoplasm of breast (principal); R58 Hemorrhage, not elsewhere classified
CPT/HCPCS: 77063; 77067; 85025; 85610; 85652; 85730; 86140

== ENCOUNTER 2020-06-05 10:36 | Emergency (ER) | payer BC ==
[2020-06-05 10:41] VITALS: TEMP 98.1
[2020-06-05] MEDS ORDERED: SODIUM CHLORIDE 0.9% 1,000 ML IV ONE (10:55)
--- NOTE | 2020-06-05 10:55 | ED ---
General Adult HPI - General Chief complaint: Headache Stated complaint: headache, dehydrated Time Seen by Provider: 06/05/20 10:47 Source: patient Mode of arrival: ambulatory Limitations: no limitations - History of Present Illness Initial comments: 44-year-old female presenting today for chief complaint of headache. Patient states that she does have chronic headache she states she gets approximately 3 times a month. Patient states with this headache feels slightly different. She denies sudden onset of this being the worse headache of her life but she states that it feels different than her typical headaches. Patient states she has also had associated diarrhea. She states she has had some nausea which is not uncommon with her headache denies visual changes weakness of the upper or lower extremities or sensation deficits. Patient denies any speech changes. She denies any neck stiffness or fevers. Patient admits to sore throat, denies cough or SOB. patient does state that she is concerned about Covid-19 infection. Remaining review of system negative - Related Data Home Medications Medication Instructions Recorded Confirmed ALPRAZolam [Xanax] 0.25 mg PO BID PRN 03/17/19 06/05/20 Omeprazole Magnesium [PriLOSEC OTC] 20 mg PO DAILY 04/26/19 06/05/20 Venlafaxine HCl ER [Effexor Xr] 150 mg PO DAILY 06/05/20 06/05/20 Allergies Allergy/AdvReac Type Severity Reaction Status Date / Time Latex, Natural Rubber Allergy Rash/Hives Verified 06/05/20 11:56 topiramate [From Topamax] AdvReac mood swings Verified 06/05/20 11:56 Review of Systems ROS Statement: Those systems with pertinent positive or pertinent negative responses have been documented in the HPI. ROS Other: All systems not noted in ROS Statement are negative. Past Medical History Past Medical History: Asthma, GERD/Reflux, Musculoskeletal Disorder Additional Past Medical History / Comment(s): Herniated disc in neck History of Any Multi-Drug Resistant Organisms: None Reported Past Surgical History: Back Surgery, Orthopedic Surgery, Uterine Ablation Additional Past Surgical History / Comment(s): left and right foot surgery, L5- S1 laminectomy 2005 Past Anesthesia/Blood Transfusion Reactions: Postoperative Nausea & Vomiting (PONV) Past Psychological History: Anxiety, Depression Smoking Status: Former smoker Past Alcohol Use History: Occasional Past Drug Use History: None Reported - Past Family History Mother Family Medical History: No Reported History General Exam - General Exam Comments Initial Comments: General: The patient is awake and alert, in no distress Eye: +3 mm pupils are equal, round and reactive to light, extra-ocular movements are intact. No nystagmus. There is normal conjunctiva bilaterally. No signs of icterus. Ears, nose, mouth and throat: There are moist mucous membranes and no oral lesions. Oropharynx nonerythematous Neck: The neck is supple, there is no tenderness or JVD. No nuchal rigidity Cardiovascular: There is a regular rate and rhythm. No murmur, rub or gallop is appreciated. Respiratory: Lungs are clear to auscultation, respirations are non-labored, br eath sounds are equal. No wheezes, stridor, rales, or rhonchi. Gastrointestinal: Soft, non-distended, non-tender abdomen without masses or organomegaly noted. There is no rebound or guarding present. Musculoskeletal: Normal ROM, no tenderness. Strength 5/5. Sensation intact. Radial pulses equal bilaterally 2+. Neurological: A&O x 3. CN II-XII intact, no pronator drift. Speech within normal limits. No drift of the lower extremities. Finger-nose smooth and coordinated. Gait without ataxia. Sensation and muscle strength intact equally b/l of the UE and LE. Skin: Skin is warm and dry and no rashes or lesions are noted. Psychiatric: Cooperative, appropriate mood & affect, normal judgment. Limitations: no limitations Course Vital Signs 06/05/20 06/05/20 06/05/20 10:39 10:41 11:41 Temperature 98.1 F Pulse Rate 86 67 Respiratory 19 18 18 Rate Blood Pressure 138/84 137/89 O2 Sat by Pulse 100 98 Oximetry 06/05/20 12:20 Temperature Pulse Rate 79 Respiratory 18 Rate Blood Pressure 144/73 O2 Sat by Pulse 100 Oximetry Medical Decision Making - Medical Decision Making Well-appearing 44yo female presenting for sore throat, diarrhea headache nausea she states she is concerned of Covid. No focal neurological deficits. Denies there being sudden onset or this being the worst headache of her life no nuchal irritation physical examination No cough no shortness of breath. Lung sounds clear. No signs of respiratory distress. Patient's oropharynx is not erythematous. Abdomen soft nontender. Vital signs within acceptable limits. Patient labs stable. Improvement of symptoms with toradol and fluids Patient is to self quarantine until symptoms free. Recommend PCP f/u. Patietn is to return for worsening symptoms, inability to breath/tolerate oral intake. patient is agreeable to this care plan and discharge as is attending provider Natalie Sales. - Lab Data Result diagrams: 06/05/20 11:10 06/05/20 11:10 Lab Results 06/05/20 06/05/20 Range/Units 11:10 11:10 WBC 6.7 (3.8-10.6) k/uL RBC 4.47 (3.80-5.40) m/uL Hgb 13.6 (11.4-16.0) gm/dL Hct 42.3 (34.0-46.0) % MCV 94.7 (80.0-100.0) fL MCH 30.4 (25.0-35.0) pg MCHC 32.1 (31.0-37.0) g/dL RDW 13.6 (11.5-15.5) % Plt Count 329 (150-450) k/uL Neutrophils % 55 % Lymphocytes % 36 % Monocytes % 5 % Eosinophils % 2 % Basophils % 1 % Neutrophils # 3.7 (1.3-7.7) k/uL Lymphocytes # 2.4 (1.0-4.8) k/uL Monocytes # 0.4 (0-1.0) k/uL Eosinophils # 0.2 (0-0.7) k/uL Basophils # 0.0 (0-0.2) k/uL Sodium 136 L (137-145) mmol/L Potassium 4.4 (3.5-5.1) mmol/L Chloride 103 (98-107) mmol/L Carbon Dioxide 26 (22-30) mmol/L Anion Gap 7 mmol/L BUN 12 (7-17) mg/dL Creatinine 0.68 (0.52-1.04) mg/dL Est GFR (CKD-EPI)AfAm >90 (>60 ml/min/1.73 sqM) Est GFR (CKD-EPI)NonAf >90 (>60 ml/min/1.73 sqM) Glucose 84 (74-99) mg/dL Calcium 8.9 (8.4-10.2) mg/dL Total Bilirubin 0.5 (0.2-1.3) mg/dL AST 15 (14-36) U/L ALT 16 (4-34) U/L Alkaline Phosphatase 64 (38-126) U/L Total Protein 5.9 L (6.3-8.2) g/dL Albumin 3.7 (3.5-5.0) g/dL Disposition Clinical Impression: Diarrhea, Headache, Sore throat Disposition: HOME SELF-CARE Condition: Good Instructions (If sedation given, give patient instructions): Acute Headache (ED) Additional Instructions: Please use medication as discussed. Please follow-up with family doctor in the next 2 days. Recommend self quarantining until symptoms free (no diarrhea/headaches). Please return to emergency room if the symptoms increase or worsen or for any other concerns. Is patient prescribed a controlled substance at d/c from ED?: No Referrals: Devin Pike MD [Primary Care Provider] - 1-2 days Time of Disposition: 11:42
[2020-06-05] MEDS ORDERED: SODIUM CHLORIDE 0.9% 1,000 ML IV SCH (11:00)
[2020-06-05 11:22] LABS: Basophils % (A) 1 %; Eosinophils # (A) 0.2 k/uL (0-0.7); Eosinophils % (A) 2 %; HCT 42.3 % (34.0-46.0); HGB 13.6 gm/dL (11.4-16.0); Lymphocytes # (A) 2.4 k/uL (1.0-4.8); Lymphocytes % (A) 36 %; MCH 30.4 pg (25.0-35.0); MCHC 32.1 g/dL (31.0-37.0); MCV 94.7 fL (80.0-100.0); Mean Platelet Volume 6.8; Monocytes # (A) 0.4 k/uL (0-1.0); Monocytes % (A) 5 %; Neutrophils # (A) 3.7 k/uL (1.3-7.7); Neutrophils % (A) 55 %; Platelet Count 329 k/uL (150-450); RBC 4.47 m/uL (3.80-5.40); RDW 13.6 % (11.5-15.5); WBC 6.7 k/uL (3.8-10.6)
[2020-06-05 11:32] LABS: ALT 16 U/L (4-34); AST 15 U/L (14-36); African American GFR (CKD) >90 (>60 ml/min/1.73 sqM); Albumin 3.7 g/dL (3.5-5.0); Alkaline Phosphatase 64 U/L (38-126); Anion Gap 7 mmol/L; Blood Urea Nitrogen 12 mg/dL (7-17); Calcium 8.9 mg/dL (8.4-10.2); Carbon Dioxide 26 mmol/L (22-30); Chloride 103 mmol/L (98-107); Glucose 84 mg/dL (74-99); Non-African American GFR(CKD) >90 (>60 ml/min/1.73 sqM); Potassium 4.4 mmol/L (3.5-5.1); Sodium 136 mmol/L (137-145); Total Bilirubin 0.5 mg/dL (0.2-1.3); Total Protein 5.9 g/dL (6.3-8.2)
[2020-06-05] MEDS ORDERED: KETOROLAC 30 MG/ML 1 ML VIAL IVP STA (11:38)
--- NOTE | 2020-06-05 11:39 | CT ---
EXAMINATION TYPE: CT brain wo con DATE OF EXAM: 06/05/2020 COMPARISON: CT brain November 2014. MRI brain October 09, 2019 HISTORY: Headache CT DLP: 1099.4 mGycm. Automated Exposure Control for Dose Reduction was Utilized. TECHNIQUE: CT scan of the head is performed without contrast. FINDINGS: There is no acute intracranial hemorrhage, mass effect, or midline shift identified. The ventricles and sulci are within normal limits in size for patient's age. Zepeda-white matter different iation fairly well-maintained. The globes are intact and the visualized sinuses are clear. Stable pro minence of CSF in the central aspect inferior posterior fossa felt to be consistent with prominent ci sterna magna. IMPRESSION: No acute intracranial hemorrhage or midline shift is seen. No significant change from pr ior CT study.
[2020-06-05 11:59] VITALS: RESP 18
[2020-06-05 12:30] VITALS: BP 144/73; PULSE 79
== END 2020-06-05 12:23 | disposition home or self-care (01) ==
LOC: EC 10:36
DX: J02.9 Acute pharyngitis, unspecified (principal); R51 Headache; E86.0 Dehydration; R11.0 Nausea; F41.9 Anxiety disorder, unspecified; F32.9 Major depressive disorder, single episode, unspecified; K21.9 Gastro-esophageal reflux disease without esophagitis; Z79.899 Other long term (current) drug therapy; Z91.040 Latex allergy status; Z88.8 Allergy status to other drugs, medicaments and biological substances; Z87.891 Personal history of nicotine dependence
CPT/HCPCS: 36415; 80053; 85025; 70450; 99284; 96374; 96361; J1885

== ENCOUNTER → 2020-06-23 | Outpatient (CLI) | payer BC ==
--- NOTE | 2020-06-24 07:50 | NM ---
EXAMINATION TYPE: NM hepatobiliary w EF DATE OF EXAM: 06/23/2020 COMPARISON: NONE INDICATION: Nausea vomiting TECHNIQUE: After the intravenous administration of 5 mCi Tc 99m Mebrofenin hepatobiliary scintigraphy is performed. Images were obtained immediately post injection. FINDINGS: There is prompt uptake and excretion of radiotracer by the liver. Extrahepatic ducts are identified at 5 minutes. The gallbladder is visualized within 20 minutes. Small bowel activity is noted within 7 minutes. At one hour 8 ounces of oral ensure plus is given to mimic CCK and gallbladder ejection fraction is c alculated at 73 %, which is in the normal range. (Normal >35% and <80%.). IMPRESSION: 1. Normal hepatobiliary scan
== END | disposition home or self-care (01) ==
LOC: RADNMMAIN 15:24
PROVIDERS: ATTEND Internal Medicine
DX: R11.2 Nausea with vomiting, unspecified (principal); R10.11 Right upper quadrant pain
CPT/HCPCS: 78226; A9537

== ENCOUNTER 2020-08-21 08:55 | Day surgery (SDC) | payer BC ==
[2020-08-19 14:57] VITALS: BMI 34.1
[~2020-08-21 08:55] MED LIST changes: -ACETAMINOPHEN TAB 500 MG TAB PO PRN; -ALPRAZolam 0.25 MG TAB PO PRN; -BACITRACIN 50,000 UNIT, POLYMYXIN B 500,000 UNIT in SODIUM CHLORIDE 0.9% IRRIGATIO 1,00... IRRIGATION ONE; -BENZOCAINE/MENTHOL LOZENG 1 EACH LOZENGE MUCOUS MEM PRN; -DEXAMETHASONE SOD PHOSPHATE 10 MG/ML 1 ML VIAL IV ONE; -GELATIN SPONGE,ABSORB (LARGE) 1 EACH SPONGE MISCELLANE ONE; -HYDROcodone/APAP 5-325MG 1 EACH TAB PO ONE; -HYDROcodone/APAP 5-325MG 1 EACH TAB PO PRN; -HYDROmorphone 0.5 MG/0.5 ML SYRINGE IVP PRN; -KETAMINE 10 MG/ML 20 ML VIAL ONE; -LACTATED RINGERS 1,000 ML IV ONE; +LIDOCAINE 1% (10MG/ML) FOR IV START INTRADERMA PRN; -LIDOCAINE 1% 20 ML VIAL (10MG/ML) FOR IV START INTRADERMA PRN; -LIDOCAINE 1% INJ 10MG/ML (20 ML MDV) ONE; -LIDOCAINE 1%-EPI 1:100,000 20 ML VIAL SQ ONE; -MIDAZOLAM 2 MG/2 ML VIAL IV PRN; -MIDAZOLAM 2 MG/2 ML VIAL ONE; -NON-FORMULARY DRUG (Omeprazole Magnesium [Prilosec Otc] 20 MG) PO SCH; -ONDANSETRON 4 MG/2 ML VIAL IVP ONE; -ONDANSETRON 4 MG/2 ML VIAL IVP PRN; -PROPOFOL 10 MG/ML 20 ML VIAL IV ONE; -SENNOSIDES-DOCUSATE SODIUM 1 EACH TAB PO SCH; -SERTRALINE 100 MG TAB PO SCH; -SODIUM CHLORIDE 0.9% 1,000 ML IV SCH; -SUCCINYLCHOLINE CHLORIDE 100 MG/5 ML SYR IV ONE; -THROMBIN (BOVINE) 5,000 UNIT VIAL TOPICAL ONE; -ceFAZolin IN SWFI 2 GM/20 ML SYRINGE IVP ONE; -ceFAZolin IN SWFI 2 GM/20 ML SYRINGE IVP SCH; -ePHEDrine SULFATE/0.9% NACL/PF 50 MG/5 ML SYRINGE IV ONE; -fentaNYL (PF) 50 MCG/ML 2 ML AMP ONE
[2020-08-21 09:44] VITALS: RESP 16; TEMP 97.3
[2020-08-21] MEDS ORDERED: ONDANSETRON 4 MG/2 ML VIAL ONE (09:53)
[2020-08-21] MEDS ORDERED: LIDOCAINE 1% INJ 10MG/ML (20 ML MDV) ONE (10:51)
[2020-08-21] MEDS ORDERED: PROPOFOL 10 MG/ML 20 ML VIAL IV ONE (10:51)
--- NOTE | 2020-08-21 11:16 | P.PCN ---
Date of Procedure: 08/21/20 Procedure(s) Performed: Brief history: Patient is a pleasant 44-year-old white female scheduled for an elective upper endoscopy as well as colonoscopy as a part of evaluation of chronic heartburn, change in in bowel habits associated with abdominal bloating for the last several months duration. Procedure performed: Esophagogastroduodenoscopy with biopsy Colonoscopy after descending colon Preoperative diagnosis: Anesthesia: MAC Procedure: After informed consent was obtained from the patient was brought into the endoscopy unit and IV sedation was administered by anesthesia under continuous monitoring. Initially upper endoscopy was done. The Olympus GF 160 video endoscope was inserted inserted into the mouth and esophagus intubated without any difficulty and was gradually advanced into the stomach and duodenum and carefully examined. The bulb and second part of the duodenum appeared normal. The scope was then withdrawn into the stomach adequately insufflated with air and upon careful examination the antrum had mild gastritis and biopsies were done from this area. The body, cardia and fundus appeared normal. The scope was then withdrawn into the esophagus. The GE junction was located at 40 cm to the incisors. It appeared regular with no erythema erosions or ulcerations. Rest of the esophagus appeared normal. Patient tolerated the procedure well. At this time the patient continued to remain sedation. Initial digital rectal examination was normal. Olympus CF 160 video colonoscope was then inserted into the rectum and gradually advanced to the , descending colon. At this time there was solid stool was encountered and it could not advance the scope any further. The procedure was terminated. The visualized portions of the descending colon, sigmoid colon and rectum appeared normal. Retroflexion was performed in the rectum and no lesions were noted. Patient tolerated the procedure well. Impression: 1. Upper endoscopy revealed mild antral gastritis but no evidence of esophagitis or Kidd's esophagus 2. Colonoscopy up to descending colon appeared normal however the prep was extremely poor beyond the descending colon and hence procedure had a Recommendations: Findings of this examination were discussed with the patient as well as family. She will continue with omeprazole 20 mg twice daily and follow antireflux measures. She was advised to reschedule for colonoscopy later date with a 2 day prep.
[2020-08-21 11:45] VITALS: BP 129/88; PULSE 73
== END 2020-08-21 12:00 | disposition home or self-care (01) ==
LOC: ORWHC2ENDO 08:55
PROVIDERS: ATTEND Internal Medicine Gastroenterology
DX: K29.50 Unspecified chronic gastritis without bleeding (principal); R19.4 Change in bowel habit; J45.909 Unspecified asthma, uncomplicated; K21.9 Gastro-esophageal reflux disease without esophagitis; Z91.040 Latex allergy status; Z79.899 Other long term (current) drug therapy; Z88.8 Allergy status to other drugs, medicaments and biological substances
CPT/HCPCS: 81025; 45378; 43239; J2405; J2001; J2704; 88305

== ENCOUNTER 2020-10-02 08:25 | Day surgery (SDC) | payer BC ==
[2020-09-30 10:24] VITALS: BMI 34.9
[2020-10-02 09:21] VITALS: TEMP 97.8
[2020-10-02] MEDS ORDERED: LACTATED RINGERS 1,000 ML IV ONE (09:23)
[2020-10-02] MEDS ORDERED: ONDANSETRON 4 MG/2 ML VIAL ONE (09:53)
[2020-10-02] MEDS ORDERED: PROPOFOL 10 MG/ML 20 ML VIAL IV ONE (09:53)
--- NOTE | 2020-10-02 10:16 | P.PCN ---
Date of Procedure: 10/02/20 Procedure(s) Performed: BRIEF HISTORY: Patient is a 44-year-old pleasant female scheduled for an elective colonoscopy as a part of evaluation of change in bowel habits for the last 3 months duration. PROCEDURE PERFORMED: Colonoscopy with snare polypectomy. PREOPERATIVE DIAGNOSIS: Change In bowel habits of 3 months duration. IV sedation per Anesthesia. PROCEDURE: After informed consent was obtained, the patient, was brought into the endoscopy unit. IV sedation was administered by Anesthesia under continuous monitoring. Digital rectal examination was normal. Initially the Olympus CF-160 flexible video colonoscope was then inserted in the rectum, gradually advanced into the cecum without any difficulty. Careful examination was performed as the scope was gradually being withdrawn. Ileocecal valve and the appendiceal orifice were visualized and appeared normal. Prep was poor and several areas of the colon.. Mucosa of the cecum, ascending colon, transverse colon, descending colon, sigmoid colon, and rectum appeared normal. In the proximal rectum there was a 1.5 cm polyp that was removed by snare polypectomy. Retroflexion was performed in the rectum and no lesions were seen. The patient tolerated the procedure well. IMPRESSION: 1.5 cm proximal rectal polyp status post polypectomy Prep involving the entire colon RECOMMENDATIONS: Findings of this examination were discussed with the patient as well as a family. She was advised to follow with the biopsy results. If the biopsy proven adenoma she can have a repeat colonoscopy in 3 Years
[2020-10-02 10:20] VITALS: RESP 16
[2020-10-02 10:31] VITALS: BP 138/90; PULSE 71
== END 2020-10-02 11:11 | disposition home or self-care (01) ==
LOC: ORWHC2ENDO 08:25
PROVIDERS: ATTEND Internal Medicine Gastroenterology
DX: D12.8 Benign neoplasm of rectum (principal); J45.909 Unspecified asthma, uncomplicated; K21.9 Gastro-esophageal reflux disease without esophagitis; Z88.8 Allergy status to other drugs, medicaments and biological substances; Z91.040 Latex allergy status; Z79.899 Other long term (current) drug therapy
CPT/HCPCS: 81025; 88305; 45385; J2405; J2704

== ENCOUNTER → 2021-04-27 | Outpatient (CLI) | payer BC ==
--- NOTE | 2021-04-27 12:57 | US ---
EXAMINATION TYPE: US gallbladder DATE OF EXAM: 04/27/2021 COMPARISON: 10/22/2019 CLINICAL HISTORY: R10.11 RUQ PAIN. EXAM MEASUREMENTS: Liver Length: 15.7 cm Gallbladder Wall: 0.2 cm CBD: 0.2 cm Right Kidney: 10.7 x 3.8 x 4.5 cm Patient of large body habitus. Pancreas: wnl Liver: Increased attenuation, probable focal fatty sparing adjacent to gallbladder Gallbladder: wnl Evidence for sonographic Abebe's sign: no CBD: wnl Right Kidney: wnl IMPRESSION: 1. Study is limited due to large body habitus. 2. Diffuse fatty infiltration of the liver with focal fatty sparing of the gallbladder fossa. 3. No gallstones. No pericholecystic fluid. Common duct is within normal limits. 4. No hydronephrosis or shadowing renal calculi of the right kidney.
== END | disposition home or self-care (01) ==
LOC: RADUSWWP 08:21
PROVIDERS: ATTEND Internal Medicine Gastroenterology
DX: K76.0 Fatty (change of) liver, not elsewhere classified (principal)
CPT/HCPCS: 76705

== ENCOUNTER → 2021-05-25 | Outpatient (CLI) | payer BC ==
--- NOTE | 2021-05-25 09:42 | NM ---
EXAMINATION TYPE: NM hepatobiliary w EF DATE OF EXAM: 05/25/2021 COMPARISON: NONE HISTORY: R10.11 Upper right quadrant pain TECHNIQUE: After the intravenous administration of 5 mCi Tc 99m Mebrofenin hepatobiliary scintigraphy is performed. Immediate images post injection. FINDINGS: There is satisfactory initial accumulation of tracer by the liver. The gallbladder is visualized wit hin 8 minutes. The small bowel activity is noted within 60 minutes. At one hour 8 ounces of oral en sure plus is given to mimic CCK and gallbladder ejection fraction is calculated at 83 %, in the mike l range. Therefore there is no scintigraphic evidence of cystic or common bile duct obstruction to s uggest acute cholecystitis or gallbladder dyskinesia. IMPRESSION: Exam is within normal limits.
== END | disposition home or self-care (01) ==
LOC: RADNMMAIN 06:58
PROVIDERS: ATTEND Internal Medicine Gastroenterology
DX: R10.11 Right upper quadrant pain (principal)
CPT/HCPCS: 78226; A9537

== ENCOUNTER → 2021-11-15 | Outpatient (CLI) | payer BC ==
[2021-11-15 13:33] VITALS: BP 127/77; PULSE 68; RESP 18
--- NOTE | 2021-11-15 15:53 | P.CON ---
Consult Note - . Consult date: 11/15/21 Assessment/Plan:: HISTORY OF PRESENT ILLNESS: 45 year old female as a referral from Dr Lo presents today with lumbar pain secondary to lumbar degeneration and facet arthropathy for a pain management evaluation. States she had a "lumbar microlaminectomy" and multiple series of epidurals but her pain has returned since. It is currently a 7 /10 in intensity, dull and achy in the lumbar spine and radiates in a sharp shooting character towards her left buttocks and right lower extremity. Also admits to tingling in the feet intermittently. Pain also shoots up and down her lumbar spine. It is provoked with bending, twisting and lifting. 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 Palliated with medications (Tylenol & Motrin), topical icy hot and pain patches, heat, repositioning and home based stretching. PMH: Asthma PSH: Cervical fusion, Lumbar microlaminectomy SH: Quit tobacco use x 7 years. No ETOH abuse. 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 No recent weight loss. HEENT: No visual acuity loss, eye pain, difficulties with hearing. No nosebleeds. No difficulty swallowing. RESPIRATORY: Denies any troubles with breathing or dyspnea on exertion. CARDIOVASCULAR: Denies any chest pain, palpitations, or recent heart attacks. GASTROINTESTINAL: Denies fatty food intolerance. Has change in bowel habits and gas bloat. GENITOURINARY: Denies any blood in urine. Has increased urinary frequency. NEUROLOGICAL: + numbness and tingling along the distal extremities. No seizure disorders or headaches. MUSCULOSKELETAL: + back pain SKIN: No skin cancer. No rash. PSYCHIATRIC: Denies current depression or suicidal thoughts. ENDOCRINE: Denies current thyroid disorders. Denies any blood sugar glucose intolerance. HEME/LYMPHATIC: Denies any lumps and bumps around the neck. History of deep venous thrombosis. ALLERGY/IMMUNOLOGY: No immunoglobulin therapy. No immune deficiencies. BREAST: Denies current breast lumps, pain or nipple discharge. Physical Examinations : Constitutional : Cooperative , not in acute distress . HEENT: Neck supple. No Lymphadenopathy. Normal thyroid size . Eyes no ptosis , no icterus, no photophobia . Hearing intact. Normal oropharynx. No Thrush. Respiratory : Chest clear to auscultations bilaterally. No wheezing. No rhonchi. Cardiovascular : Regular rate and rhythm , S1 / S2. No S3 . No S4. Gastrointestinal : Abdomen soft. No tenderness. Bowel sounds x 4. No organomegaly . Genitourinary : Deferred. Neurologic : Cranial nerve II to XII intact. No focal neurological deficits. Psychiatric : alert & oriented x 3. Matching mood & appropriate affect. Judgment & insight intact. Lymphatic No Lymphadenopathy. Musculoskeletal : Cervical Spine Motor strength in the deltoid and biceps: Normal right side. Normal Left side Motor strength biceps and the wrist ex tensors: Normal right side . Normal left side Motor strength in the triceps muscle: Normal right side. Normal left side Deep tendon reflexes: Normal at the biceps. Normal at Brachioradialis. Normal at triceps Cervical facet loading test: positive bilaterally Spurling test: positive bilaterally Neck distraction test: positive bilaterally Jess sign: positive bilaterally Lumbar spine Motor strength lower extremities ,thigh and legs 5/5 Right side , 5/5 Left side Deep tendon reflexes : Normal Knee Jerk. Normal Ankle Jerk Lumbar facet Loading Test: positive Ri ght / positive Left Range of motion of the lumbar spine Flexion <90 degrees, extension 10 degrees Straight Leg Raise test: Left/ Right positive at <30 degrees Sara test: positive right / positive left. Severe tenderness over the Sacroiliac joint on the Right / Left sides Gaenslen test: positive bilaterally Seated flexion test: positive bilaterally. IMAGING Lumbar MRI 10/14/21 : L2-L3 minor disc bulge, L4-L5 minor disc bulge with facet arthropathy and trace right neural foraminal narrowing, L5-S1 disc bulge and severe bilateral facet joint degenerative changes that causes moderate spinal canal stenosis and bilateral neural foraminal stenoses. Assessment/ Plan : Recommendation of Flexeril medication Recommendation of LESI of L5-S1 May need additional LESI based on response to procedure Denies use of aspirin or anti coagulants May continue other medications as directed I have spent greater than 50 minutes on patient care today. Dr Franklin was available by phone for the evaluation of this patient. The time was used to review the medical records including relevant urine studies and Prescription history (MAPs), review of the available imaging, evaluation and examination of the patient, coordination of care with the medical staff and if applicable referring physicians, as well as creation of the medical record PQRS Measure Charge Sheet Mode of Arrival: Ambulatory - Pain Location Lower Back Non-Pharmacological Interventions: Heat, Massage, Position/Reposition, Stretching Pharmacological Interventions: PRN Medication PQRS Narrative: Smoking Status Former smoker Blood Pressure 127/77 Pain Intensity [Lower Back] 7 Scale Used Numeric (1 - 10) Hx Alcohol Use (MH) Yes Home Medications: Ambulatory Orders ALPRAZolam [Xanax] 0.25 mg PO BID PRN 03/17/19 Omeprazole Magnesium [PriLOSEC OTC] 20 mg PO DAILY 04/26/19 Ibuprofen [Motrin Ib] 600 mg PO Q6H PRN 11/09/21 Wellbutrin (Unknown Dose) 1 tab PO DAILY 11/09/21
== END ==
LOC: PNWHC3 12:35
PROVIDERS: ATTEND Physician Assistant Medical
DX: M51.36 Other intervertebral disc degeneration, lumbar region (principal); M47.816 Spondylosis without myelopathy or radiculopathy, lumbar region; M96.1 Postlaminectomy syndrome, not elsewhere classified; J45.909 Unspecified asthma, uncomplicated; Z87.891 Personal history of nicotine dependence; Z91.048 Other nonmedicinal substance allergy status; Z88.8 Allergy status to other drugs, medicaments and biological substances
CPT/HCPCS: 99211

== ENCOUNTER → 2021-12-03 | Outpatient (CLI) | payer BC ==
--- NOTE | 2021-12-06 09:56 | MM ---
Reason for exam: screening (asymptomatic). Last mammogram was performed 1 year and 8 months ago. History: Patient is postmenopausal. Family history of breast cancer in maternal grandmother at age 40. Physical Findings: A clinical breast exam by your physician is recommended on an annual basis and results should be correlated with mammographic findings. MG Screening Mammo w CAD Bilateral CC and MLO view(s) were taken. Prior study comparison: April 15, 2020, bilateral MG 3d screening mammo w/cad. June 12, 2018, bilateral MG screening mammo w CAD. The breast tissue is heterogeneously dense. This may lower the sensitivity of mammography. There is no discrete abnormality. No significant changes when compared with prior studies. ASSESSMENT: Negative, BI-RAD 1 RECOMMENDATION: Routine screening mammogram of both breasts in 1 year.
== END | disposition home or self-care (01) ==
LOC: RADMAMWWP 08:46
PROVIDERS: ATTEND Internal Medicine
DX: Z12.31 Encounter for screening mammogram for malignant neoplasm of breast (principal); Z80.3 Family history of malignant neoplasm of breast; Z78.0 Asymptomatic menopausal state
CPT/HCPCS: 77067

== ENCOUNTER → 2021-12-03 | Outpatient (CLI) | payer BC ==
--- NOTE | 2021-12-03 09:13 | XR ---
EXAMINATION TYPE: XR chest 2V DATE OF EXAM: 12/03/2021 CLINICAL HISTORY: 11/05/2019 TECHNIQUE: Frontal and lateral views of the chest are obtained. COMPARISON: None FINDINGS: There is no focal air space opacity, pleural effusion, or pneumothorax seen. The cardiac silhouette size is within normal limits. The osseous structures are intact. IMPRESSION: No acute cardiopulmonary process.
[2021-12-03 10:27] LABS: Appearance,Urine Cloudy (Clear); Bilirubin,Urine Negative (Negative); Blood,Urine Negative (Negative); Color,Urine Yellow; Glucose,Urine (UA) Negative (Negative); Ketones,Urine Negative (Negative); Leukocyte Esterase,Urine Trace (Negative); Mucus,Urine Occasional /hpf; Nitrite,Urine Negative (Negative); Protein,Urine Negative (Negative); Specific Gravity,Urine 1.024 (1.001-1.035); Squamous Epithelial Cell,Urine 4 /hpf (0-4); Urobilinogen,Urine <2.0 mg/dL (<2.0); WBC,Urine 1 /hpf (0-5)
[2021-12-03 10:32] LABS: INR 0.9 (<1.2); Partial Thromboplastin Time 25.9 sec (22.0-30.0); Prothrombin Time 10.3 sec (9.0-12.0)
[2021-12-03 15:20] LABS: Basophils # (A) 0.05 X 10*3/uL (0.00-0.10); Basophils % (A) 1.1 %; Eosinophils # (A) 0.16 X 10*3/uL (0.04-0.35); Eosinophils % (A) 3.6 %; HCT 39.4 % (37.2-46.3); HGB 12.7 g/dL (12.0-15.0); Lymphocytes # (A) 1.71 X 10*3/uL (0.90-5.00); MCH 29.1 pg (27.0-32.0); MCHC 32.2 g/dL (32.0-37.0); MCV 90.2 fL (80.0-97.0); Mean Platelet Volume 9.7 fL (9.5-12.2); Monocytes % (A) 6.7 %; Neutrophils # (A) 2.27 X 10*3/uL (1.80-7.70); Neutrophils % (A) 50.4 %; Platelet Count 263 X 10*3/uL (140-440); RBC 4.37 X 10*6/uL (4.10-5.20); RDW 13.2 % (11.5-14.5)
[2021-12-03 16:00] LABS: African American GFR (CKD) 101.8 (60.0-200.0); BUN/Creat Ratio 14.25 Ratio (12.00-20.00); Blood Urea Nitrogen 11.4 mg/dL (9.0-27.0); Calcium 9.7 mg/dL (8.7-10.3); Non-African American GFR(CKD) 87.8 (60.0-200.0); Potassium 4.2 mmol/L (3.5-5.5)
== END | disposition home or self-care (01) ==
LOC: LABPAT 07:48
PROVIDERS: ATTEND Orthopaedic Surgery Orthopaedic Surgery of the Spine
DX: Z01.818 Encounter for other preprocedural examination (principal); M43.10 Spondylolisthesis, site unspecified
CPT/HCPCS: 36415; 71046; 80048; 81001; 85025; 85610; 85730; 87070; 93005

== ENCOUNTER → 2023-04-21 | Outpatient (CLI) | payer BC ==
--- NOTE | 2023-04-24 06:01 | MM ---
Reason for Exam: Screening (asymptomatic). Last mammogram was performed 1 year(s) and 4 month(s) ago. Patient History: Menarche at age 9. First Full-Term at age 15. Postmenopausal. Paternal grandmother had breast cancer, age 40. Risk Values: Lou 5 year model risk: 0.7%. NCI Lifetime model risk: 7.3%. Prior Study Comparison: 06/12/2018 Bilateral Screening Mammogram, [facility]. 04/15/2020 Bilateral Screening Mammogram, [facility]. 12/03/2021 Bilateral Screening Mammogram, [facility]. Tissue Density: The breast tissue is heterogeneously dense. This may lower the sensitivity of mammography. Findings: Analyzed By CAD. There is no suspicious group of microcalcifications or new suspicious mass in either breast. Overall Assessment: Negative, BI-RAD 1 Management: Screening Mammogram of both breasts in 1 year. A clinical breast exam by your physician is recommended on an annual basis and results should be correlated with mammographic findings. Note on Lou scores and lifetime risk: 1. A Lou score greater than 3% is considered moderate risk. If this is the case, consider specialist referral to assess eligibility for a risk reducing agent. If overall lifetime risk for the development of breast cancer is 20% or higher, the patient may qualify for future screening with alternating mammogram and breast MRI. Electronically signed and approved by: Sorin Dawson D.O.
== END | disposition home or self-care (01) ==
LOC: RADMAMWWP 07:06
PROVIDERS: ATTEND Internal Medicine
DX: Z12.31 Encounter for screening mammogram for malignant neoplasm of breast (principal); Z78.0 Asymptomatic menopausal state; Z80.3 Family history of malignant neoplasm of breast
CPT/HCPCS: 77067

== ENCOUNTER → 2023-04-21 | Outpatient (CLI) | payer BC ==
[2023-04-21 11:20] LABS: Basophils # (A) 0.05 X 10*3/uL (0.00-0.10); Basophils % (A) 1.1 %; Eosinophils # (A) 0.12 X 10*3/uL (0.04-0.35); Eosinophils % (A) 2.5 %; HCT 40.4 % (37.2-46.3); Lymphocytes # (A) 1.83 X 10*3/uL (0.90-5.00); Lymphocytes % (A) 38.7 %; MCH 29.1 pg (27.0-32.0); MCHC 32.2 d/dL (32.0-37.0); MCV 90.4 FL (80.0-97.0); Mean Platelet Volume 9.6 FL (9.5-12.2); Monocytes % (A) 6.3 %; NRBC Per 100 WBC 0 X 10*3/uL (0.00-0.01); Neutrophils # (A) 2.42 X 10*3/uL (1.80-7.70); Neutrophils % (A) 51.2 %; Platelet Count 250 X 10*3/uL (140-440); RBC 4.47 X 10*6/uL (4.10-5.20); RDW 13.6 % (11.5-14.5); WBC 4.73 X 10*3/uL (4.50-10.00)
[2023-04-21 11:55] LABS: ALT 20 U/L (8-44); AST 13 U/L (13-35); Albumin 4.5 d/dL (3.8-4.9); Albumin/Globulin Ratio 2.25 Ratio (1.60-3.17); Alkaline Phosphatase 67 U/L (41-126); Blood Urea Nitrogen 14.8 mg/dL (9.0-27.0); Calcium 9.8 mg/dL (8.7-10.3); Carbon Dioxide 25.5 mmol/L (21.6-31.8); Chloride 104 mmol/L (96-109); Chol/HDL Ratio 4.37 Ratio; Glucose 106 mg/dL (70-110); LDL Cholesterol,Calculated 173.7 mg/dL (0.0-131.0); Sodium 141 mmol/L (135-145); Total Bilirubin 0.2 mg/dL (0.3-1.2); Total Protein 6.5 d/dL (6.2-8.2); VLDL Calculation 19.92 mg/dL (5.00-40.00)
== END | disposition home or self-care (01) ==
LOC: LABWHC1 07:26
PROVIDERS: ATTEND Internal Medicine
DX: Z00.00 Encounter for general adult medical examination without abnormal findings (principal); Z11.59 Encounter for screening for other viral diseases; E55.9 Vitamin D deficiency, unspecified
CPT/HCPCS: 36415; 80053; 80061; 82306; 84443; 85025; 86803

== ENCOUNTER → 2024-04-25 | Outpatient (CLI) | payer BC ==
--- NOTE | 2024-04-25 08:32 | MM ---
Reason for Exam: Screening (asymptomatic). Last screening mammogram was performed 12 month(s) ago. Patient History: Menarche at age 9. First Full-Term at age 15. Postmenopausal. Paternal grandmother had breast cancer, age 40. Risk Values: Lou 5 year model risk: 0.8%. NCI Lifetime model risk: 7.1%. Prior Study Comparison: 04/15/2020 Bilateral Screening Mammogram, [facility]. 12/03/2021 Bilateral Screening Mammogram, [facility]. 04/21/2023 Bilateral MG screening mammo w CAD, [facility]. Tissue Density: The breasts are heterogeneously dense, which may obscure small masses. Findings: Analyzed By CAD. There is no suspicious group of microcalcifications or new suspicious mass in either breast. Overall Assessment: Negative, BI-RAD 1 Management: Screening Mammogram of both breasts in 1 year. . Patient should continue monthly self-breast exams. A clinical breast exam by your physician is recommended on an annual basis. This exam should not preclude additional follow-up of suspicious palpable abnormalities. Note on Lou scores and lifetime risk: 1. A Lou score greater than 3% is considered moderate risk. If this is the case, consider specialist referral to assess eligibility for a risk reducing agent. 2. If overall lifetime risk for the development of breast cancer is 20% or higher, the patient may qualify for future screening with alternating mammogram and breast MRI. Electronically signed and approved by: Philip Walker M.D. Radiologis
== END | disposition home or self-care (01) ==
LOC: RADMAMWWP 06:43
PROVIDERS: ATTEND Internal Medicine
DX: Z12.31 Encounter for screening mammogram for malignant neoplasm of breast (principal); Z78.0 Asymptomatic menopausal state; Z80.3 Family history of malignant neoplasm of breast
CPT/HCPCS: 77067

== ENCOUNTER → 2024-04-25 | Outpatient (CLI) | payer BC ==
[2024-04-25 10:36] LABS: Basophils # (A) 0.04 X 10*3/uL (0.00-0.10); Basophils % (A) 0.9 %; Eosinophils # (A) 0.08 X 10*3/uL (0.04-0.35); Eosinophils % (A) 1.8 %; HCT 43.2 % (37.2-46.3); HGB 13.9 g/dL (12.0-15.0); Lymphocytes # (A) 1.86 X 10*3/uL (0.90-5.00); Lymphocytes % (A) 41.1 %; MCH 29.8 pg (27.0-32.0); MCHC 32.2 g/dL (32.0-37.0); MCV 92.7 FL (80.0-97.0); Monocytes # (A) 0.27 X 10*3/uL (0.20-1.00); NRBC Per 100 WBC 0 X 10*3/uL (0.00-0.01); Neutrophils # (A) 2.27 X 10*3/uL (1.80-7.70); Platelet Count 212 X 10*3/uL (140-440); RBC 4.66 X 10*6/uL (4.10-5.20); RDW 12.7 % (11.5-14.5); WBC 4.53 X 10*3/uL (4.50-10.00)
[2024-04-25 15:22] LABS: ALT 17 U/L (8-44); AST 13 U/L (13-35); Albumin 4.5 g/dL (3.8-4.9); Alkaline Phosphatase 70 U/L (41-126); BUN/Creat Ratio 10.27 Ratio (12.00-20.00); Blood Urea Nitrogen 11.3 mg/dL (9.0-27.0); Chloride 105 mmol/L (96-109); Chol/HDL Ratio 2.78 Ratio; Globulin 1.8 g/dL (1.6-3.3); Glucose 93 mg/dL (70-110); LDL Cholesterol,Calculated 82.6 mg/dL (0.0-131.0); Potassium 4.4 mmol/L (3.5-5.5); Sodium 142 mmol/L (135-145); Total Bilirubin 0.3 mg/dL (0.3-1.2); Total Protein 6.3 g/dL (6.2-8.2); Uric Acid 4.8 mg/dL (2.9-7.7); VLDL Calculation 17.86 mg/dL (5.00-40.00)
== END | disposition home or self-care (01) ==
LOC: LABWHC1 06:57
PROVIDERS: ATTEND Internal Medicine
DX: Z00.00 Encounter for general adult medical examination without abnormal findings (principal); E78.2 Mixed hyperlipidemia; E55.9 Vitamin D deficiency, unspecified
CPT/HCPCS: 36415; 80053; 80061; 82306; 83735; 84443; 84550; 85025

== ENCOUNTER → 2025-05-16 | Outpatient (CLI) | payer OTHER ==
--- NOTE | 2025-05-16 13:29 | MM ---
Reason for Exam: Screening (asymptomatic). Last mammogram was performed 1 year(s) and 1 month(s) ago. Patient History: Menarche at age 9. First Full-Term at age 15. Postmenopausal. Paternal grandmother had breast cancer, age 40. Risk Values: Lou 5 year model risk: 0.8%. NCI Lifetime model risk: 7.0%. Prior Study Comparison: 12/03/2021 Bilateral Screening Mammogram, [facility]. 04/21/2023 Bilateral MG screening mammo w CAD, [facility]. 04/25/2024 Bilateral MG screening mammo w CAD, [facility]. Tissue Density: The breasts are extremely dense, which lowers the sensitivity of mammography. Findings: Analyzed By CAD. There is no suspicious group of microcalcifications or new suspicious mass in either breast. Chronic nodularity right breast stable small lymph node. Overall Assessment: Benign, BI-RAD 2 Management: Screening Mammogram of both breasts in 1 year. . Patient should continue monthly self-breast exams. A clinical breast exam by your physician is recommended on an annual basis. This exam should not preclude additional follow-up of suspicious palpable abnormalities. Note on Lou scores and lifetime risk: 1. A Lou score greater than 3% is considered moderate risk. If this is the case, consider specialist referral to assess eligibility for a risk reducing agent. 2. If overall lifetime risk for the development of breast cancer is 20% or higher, the patient may qualify for future screening with alternating mammogram and breast MRI. [facility], , 05/16/2025 1:26 PM. Electronically signed and approved by: Phil Johnston M.D. Radiologis
== END | disposition home or self-care (01) ==
LOC: RADMAMWWP 13:03
PROVIDERS: ATTEND Internal Medicine
DX: Z12.31 Encounter for screening mammogram for malignant neoplasm of breast (principal); R92.343 Mammographic extreme density, bilateral breasts; Z78.0 Asymptomatic menopausal state; Z80.3 Family history of malignant neoplasm of breast
CPT/HCPCS: 77067